=== PATIENT | male | born 1970 | race African-American/Black ===

== ENCOUNTER 2017-08-08 11:48 | Inpatient (IN) | payer OTHER ==
[2017-08-08 13:40] VITALS: BMI 39.3
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
[2017-08-08] MEDS ORDERED: ACETAMINOPHEN 325 MG TABLET (FP) PO PRN (21:34)
[2017-08-08] MEDS ORDERED: guaiFENesin/D-METHORPHAN HB 10 ML UNIT-DOSE CUPS PO PRN (21:34)
[2017-08-08] MEDS ORDERED: P-EPHED 60MG/TRIPROLIDI 2.5MG TABLET PO PRN (21:34)
[2017-08-08] MEDS ORDERED: MAGNESIUM CITRATE 300 ML BOTTLE PO PRN (21:34)
[2017-08-08] MEDS ORDERED: MENTHOL/PHENOL 1 EACH UD MM PRN (21:34)
[2017-08-08] MEDS ORDERED: MAGNESIUM HYDROX 2400MG/30ML ORAL SUSPENSION 30 ML CUP PO PRN (21:34)
[2017-08-08] MEDS ORDERED: diazePAM 5 MG TABLET PO ONE (21:34)
[2017-08-08] MEDS ORDERED: LOPERAMIDE HCL 2 MG CAPSULE PO PRN (21:34)
[2017-08-08] MEDS ORDERED: IBUPROFEN 400 MG TABLET (FP) PO PRN (21:34)
[2017-08-08] MEDS ORDERED: METHADONE HCL 10 MG TABLET (FOR DETOX USE ONLY) PO ONE ×2 (21:34→23:00)
[2017-08-08] MEDS ORDERED: diazePAM 5 MG TABLET PO PRN (21:34)
[2017-08-08] MEDS ORDERED: MAG HYDROX/AL HYDROX/SIMETH 30 ML UNIT-DOSE CUP PO PRN (21:34)
[2017-08-08] MEDS ORDERED: AMMONIUM LACTATE 12% LOTION 225 GM BOTTLE TP PRN (21:44)
[2017-08-08] MEDS ORDERED: METOPROLOL TARTRATE 50 MG TABLET (FP) PO ONE (21:55)
[2017-08-08] MEDS ORDERED: MELATONIN 5 MG TABLETS PO PRN (22:00)
[2017-08-08] MEDS ORDERED: diazePAM 5 MG TABLET PO SCH (22:00)
[2017-08-09] MEDS ORDERED: METHADONE HCL 10 MG TABLET (FOR DETOX USE ONLY) PO ONE ×3 (00:10→23:00)
[2017-08-09] MEDS ORDERED: diazePAM 5 MG TABLET PO ONE (00:10)
[2017-08-09] MEDS: THIAMINE HCL 100 MG TABLET (FP) PO SCH ×2 (01:11→22:21)
[2017-08-09] MEDS ORDERED: cloNIDine HCL 0.1 MG TABLET PO ONE (01:28)
[2017-08-09] MEDS: diazePAM 5 MG TABLET PO SCH ×3 (05:45→22:21)
[2017-08-09] MEDS ORDERED: METHADONE HCL 10 MG TABLET (FOR DETOX USE ONLY) PO SCH (10:00)
[2017-08-09 10:23] LABS: HEMATOCRIT 33.6 % (35.4-49); HEMOGLOBIN 11.6 GM/dL (11.7-16.9); MCH 29.8 pg (25.7-33.7); MCHC 34.4 g/dl (32.0-35.9); MEAN CELL VOLUME 86.4 fl (80-96); MEAN PLT VOLUME 9.5 fl (7.5-11.1); PLATELET COUNT 221 K/MM3 (134-434); RBC 3.89 M/mm3 (4.00-5.60); RDW 14.5 % (11.9-15.9); WHITE BLOOD COUNT 4.8 K/mm3 (4.0-10.0)
[2017-08-09 10:30] LABS: ALBUMIN 3.4 g/dl (3.4-5.0); ANION GAP 5 (8-16); BLOOD UREA NITROGEN 22 mg/dL (7-18); CALCIUM 8.6 mg/dL (8.5-10.1); CHLORIDE 106 mmol/L (98-107); CO2 30 mmol/L (21-32); GLUCOSE,RANDOM 136 mg/dL (74-106); POTASSIUM 3.9 mmol/L (3.5-5.1); SODIUM 141 mmol/L (136-145)
[2017-08-09 10:35] LABS: ALK PHOS 93 U/L (45-117); BILIRUBIN,TOTAL 0.4 mg/dL (0.2-1.0); CREATININE 1.7 mg/dL (0.7-1.3); SGOT/AST 51 U/L (15-37); SGPT/ALT 57 U/L (12-78); TOT PROT 7.8 g/dl (6.4-8.2)
[2017-08-09] MEDS: PRENATAL VITAMINS W/ FOLIC ACID TABLET (FP) PO SCH (10:52)
[2017-08-09] MEDS: diazePAM 5 MG TABLET PO PRN ×2 (10:52→18:10)
[2017-08-09] MEDS: METOPROLOL TARTRATE 50 MG TABLET (FP) PO SCH (10:52)
[2017-08-09] MEDS: NICOTINE 21 MG/24 HOURS TOPICAL PATCH TD SCH (10:52)
--- NOTE | 2017-08-09 11:35 | EKG ---
Test Reason : Blood Pressure : / mmHG Vent. Rate : 092 BPM Atrial Rate : 092 BPM P-R Int : 164 ms QRS Dur : 098 ms QT Int : 368 ms P-R-T Axes : 055 -17 043 degrees QTc Int : 455 ms NORMAL SINUS RHYTHM NORMAL ECG WHEN COMPARED WITH ECG OF 28-APR-2016 16:56, NO SIGNIFICANT CHANGE WAS FOUND Confirmed by JONI LEE MD ([id number]) on 08/09/2017 11:35:17 AM Referred By: Confirmed By:JONI LEE MD
--- NOTE | 2017-08-09 15:42 | PN ---
[facility] CIWA - CIWA Score Nausea/Vomitin-No Nausea/No Vomiting Muscle Tremors: None Anxiety: 4-Mod. Anxious/Guarded Agitation: 4-Moderately Restless Paroxysmal Sweats: No Perspiration Orientation: 0-Oriented Tacttile Disturbances: 3-Moderate Itch/Numb/Burn Auditory Disturbances: 2-Mild Harshness/Frighten Visual Disturbances: 3-Moderate Sensitivity Headache: 0-None Present CIWA-Ar Total Score: 16 S COWS - Scale Resting Pulse: 1= IN 81-100 Sweatin= No chills or Flushing Restless Observation: 1= Difficult to Sit Still Pupil Size: 0= Normal to Room Light Bone or Joint Aches: 4=Acute Joint/Muscle Pain Runny Nose/ Eye Tearin= Runny Nose/Eyes GI Upset > 30mins: 0= None Tremor Observation of Outstretched Hands: 0= None Yawning Observation: 1= 1-2x During Session Anxiety or Irritability: 2=Irritable/Anxious Goose Flesh Skin: 3=Piloerection COWS Score: 14 [facility] Progress Note (SOAP) Subjective: Fatigue, Body Aches, Interrupted Sleep, Constipation. Objective: PATIENT A & O X 3, OBSERVED AMBULATING ON UNIT. NO ACUTE DISTRESS. NO SIGNS OF OVERT INFECTION NOTED AT SITE OF ULCER ON LOWER RIGHT LEG. 08/09/17 15:38 Vital Signs Temperature 98.6 F 08/09/17 09:49 Pulse Rate 94 H 08/09/17 09:49 Respiratory Rate 22 08/09/17 09:49 Blood Pressure 115/56 08/09/17 09:49 O2 Sat by Pulse Oximetry (%) Laboratory Tests 08/09/17 08/09/17 08/09/17 08:00 08:00 08:00 WBC 4.8 D RBC 3.89 L Hgb 11.6 L D Hct 33.6 L MCV 86.4 MCH 29.8 MCHC 34.4 RDW 14.5 Plt Count 221 D MPV 9.5 D Sodium 141 Potassium 3.9 Chloride 106 Carbon Dioxide 30 Anion Gap 5 L BUN 22 H D Creatinine 1.7 H D Creat Clearance w eGFR 43.61 Random Glucose 136 H D Calcium 8.6 Total Bilirubin 0.4 D AST 51 H D ALT 57 D Alkaline Phosphatase 93 D Total Protein 7.8 Albumin 3.4 D RPR Titer Nonreactive LABS NOTED. UA RESULTS PENDING. 08/09/17 15:40 Assessment: 08/09/17 15:39 WITHDRAWAL SYMPTOMS. Plan: CONTINUE DETOX. INCREASE DAILY PO FLUID INTAKE. BMP ON 08/11/2017 FOR ABNORMAL ADMISSION RENAL LAB VALUES. D/C IBUPROFEN AND MAGNESIUM-CONTAINING MEDS. BGM ACBK FOR ELEVATED ADMISSION RANDOM GLUCOSE LEVEL. CONTINUE WOUND CARE OF RIGHT LEG ULCER BID. BACITRACIN ORDERED FOR INFECTION PROHYLAXIS.
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
[2017-08-09] MEDS: BACITRACIN 15 GM TUBE TOPICAL OINTMENT TP SCH (22:21)
[2017-08-09] MEDS: hydrOXYzine PAMOATE 50 MG CAPSULE (FP) PO PRN (22:23)
[2017-08-10] MEDS: diazePAM 5 MG TABLET PO SCH ×3 (06:36→22:23)
[2017-08-10] MEDS: hydrOXYzine PAMOATE 50 MG CAPSULE (FP) PO PRN ×2 (06:38→22:23)
[2017-08-10] MEDS ORDERED: METHADONE HCL 10 MG TABLET (FOR DETOX USE ONLY) PO SCH (10:00)
[2017-08-10] MEDS ORDERED: METHADONE HCL 5 MG TABLET (FOR DETOX USE ONLY) PO SCH (10:00)
[2017-08-10] MEDS ORDERED: diazePAM 5 MG TABLET PO SCH (10:00)
[2017-08-10] MEDS: BACITRACIN 15 GM TUBE TOPICAL OINTMENT TP SCH ×2 (10:34→22:23)
[2017-08-10] MEDS: PRENATAL VITAMINS W/ FOLIC ACID TABLET (FP) PO SCH (10:34)
[2017-08-10] MEDS: NICOTINE 21 MG/24 HOURS TOPICAL PATCH TD SCH (10:34)
[2017-08-10] MEDS: METOPROLOL TARTRATE 50 MG TABLET (FP) PO SCH (10:34)
[2017-08-10] MEDS: diazePAM 5 MG TABLET PO PRN ×2 (10:34→17:39)
--- NOTE | 2017-08-10 17:08 | PN ---
S CIWA - CIWA Score Nausea/Vomitin-No Nausea/No Vomiting Muscle Tremors: 2 Anxiety: 4-Mod. Anxious/Guarded Agitation: 4-Moderately Restless Paroxysmal Sweats: 3 Orientation: 0-Oriented Tacttile Disturbances: 2-Mild Itch/Numbness/Burn Auditory Disturbances: 0-None Visual Disturbances: 2-Mild Sensitivity Headache: 0-None Present CIWA-Ar Total Score: 17 [facility] COWS - Scale Resting Pulse: 0= [place] 80 or Below Sweatin= Chills/Flushing Restless Observation: 1= Difficult to Sit Still Pupil Size: 0= Normal to Room Light Bone or Joint Aches: 2= Severe Diffuse Aches Runny Nose/ Eye Tearin= Nasal Congestion GI Upset > 30mins: 0= None Tremor Observation of Outstretched Hands: 2= Slight Tremor Visible Yawning Observation: 1= 1-2x During Session Anxiety or Irritability: 2=Irritable/Anxious Goose Flesh Skin: 3=Piloerection COWS Score: 13 [facility] Progress Note (SOAP) Subjective: Tremors, Anxious, Body Aches, Sweating. Objective: PATIENT A & O X 3, OBSERVED AMBULATING ON UNIT. NO ACUTE DISTRESS. 08/10/17 17:06 Vital Signs Temperature 98.7 F 08/10/17 10:06 Pulse Rate 75 08/10/17 10:06 Respiratory Rate 18 08/10/17 10:06 Blood Pressure 130/82 08/10/17 10:06 O2 Sat by Pulse Oximetry (%) Laboratory Tests 08/09/17 08/09/17 08/09/17 08:00 08:00 08:00 WBC 4.8 D RBC 3.89 L Hgb 11.6 L D Hct 33.6 L MCV 86.4 MCH 29.8 MCHC 34.4 RDW 14.5 Plt Count 221 D MPV 9.5 D Sodium 141 Potassium 3.9 Chloride 106 Carbon Dioxide 30 Anion Gap 5 L BUN 22 H D Creatinine 1.7 H D Creat Clearance w eGFR 43.61 POC Glucometer Random Glucose 136 H D Calcium 8.6 Total Bilirubin 0.4 D AST 51 H D ALT 57 D Alkaline Phosphatase 93 D Total Protein 7.8 Albumin 3.4 D RPR Titer Nonreactive 08/10/17 06:35 WBC RBC Hgb Hct MCV MCH MCHC RDW Plt Count MPV Sodium Potassium Chloride Carbon Dioxide Anion Gap BUN Creatinine Creat Clearance w eGFR POC Glucometer 156 Random Glucose Calcium Total Bilirubin AST ALT Alkaline Phosphatase Total Protein Albumin RPR Titer LABS NOTED. PATIENT REFUSED TO HAVE BMP DRAWN THIS AM. 08/10/17 17:07 Assessment: 08/10/17 17:07 WITHDRAWAL SYMPTOMS. Plan: CONTINUE DETOX.
[2017-08-10] MEDS: THIAMINE HCL 100 MG TABLET (FP) PO SCH (22:23)
[2017-08-11] MEDS: CYCLOBENZAPRINE HCL 10 MG TABLET (FP) PO PRN ×2 (05:31→17:49)
[2017-08-11] MEDS: diazePAM 5 MG TABLET PO PRN ×2 (05:31→17:49)
[2017-08-11] MEDS: METHADONE HCL 5 MG TABLET (FOR DETOX USE ONLY) PO SCH (10:23)
[2017-08-11] MEDS: diazePAM 5 MG TABLET PO SCH ×2 (10:23→22:15)
[2017-08-11] MEDS: NICOTINE 21 MG/24 HOURS TOPICAL PATCH TD SCH (10:23)
[2017-08-11] MEDS: METOPROLOL TARTRATE 50 MG TABLET (FP) PO SCH (10:23)
[2017-08-11] MEDS: PRENATAL VITAMINS W/ FOLIC ACID TABLET (FP) PO SCH (10:23)
[2017-08-11] MEDS: NICOTINE POLACRILEX 2 MG GUM BC PRN (10:24)
[2017-08-11] MEDS: BACITRACIN 15 GM TUBE TOPICAL OINTMENT TP SCH ×2 (10:24→22:14)
--- NOTE | 2017-08-11 12:57 | PN ---
[facility] Progress Note (SOAP) Subjective: Sleep disturbance Shakes sweats Objective: 08/11/17 12:54 anxious irritable A & O x 3 refuse assessment of leg ulcer Vital Signs Temperature 98.5 F 08/11/17 09:10 Pulse Rate 83 08/11/17 09:10 Respiratory Rate 18 08/11/17 09:10 Blood Pressure 142/95 08/11/17 09:10 O2 Sat by Pulse Oximetry (%) Assessment: 08/11/17 12:56 withdrawal sx Plan: continue detox
[2017-08-11 20:08] LABS: URINE APPEARANCE CLEAR; URINE BILIRUBIN NEGATIVE (<2.0 mg/dL); URINE BLOOD NEGATIVE (NEGATIVE); URINE COLOR YELLOW; URINE GLUCOSE (UA) NEGATIVE (NEGATIVE); URINE KETONE NEGATIVE (NEGATIVE); URINE LEUK ESTERASE NEGATIVE (NEGATIVE); URINE NITRITE NEGATIVE (NEGATIVE); URINE UROBILINOGEN 4.0 E.U/dl mg/dL (0.2-1.0)
[2017-08-11 20:14] LABS: URINE PROTEIN 2+ (NEGATIVE)
[2017-08-11 20:25] LABS: EPI CELLS RARE /HPF (FEW); URINE BACTERIA RARE /hpf (NONE SEEN); URINE MUCUS RARE
[2017-08-11] MEDS: THIAMINE HCL 100 MG TABLET (FP) PO SCH (22:14)
[2017-08-11] MEDS: hydrOXYzine PAMOATE 50 MG CAPSULE (FP) PO PRN (22:16)
[2017-08-12] MEDS: hydrOXYzine PAMOATE 50 MG CAPSULE (FP) PO PRN ×3 (05:26→22:28)
[2017-08-12] MEDS ORDERED: METHADONE HCL 10 MG TABLET (FOR DETOX USE ONLY) PO SCH (10:00)
[2017-08-12] MEDS ORDERED: diazePAM 5 MG TABLET PO SCH (10:00)
[2017-08-12] MEDS: METHADONE HCL 5 MG TABLET (FOR DETOX USE ONLY) PO SCH (10:43)
[2017-08-12] MEDS: METOPROLOL TARTRATE 50 MG TABLET (FP) PO SCH (10:44)
[2017-08-12] MEDS: CYCLOBENZAPRINE HCL 10 MG TABLET (FP) PO PRN (10:44)
[2017-08-12] MEDS: PRENATAL VITAMINS W/ FOLIC ACID TABLET (FP) PO SCH (10:44)
[2017-08-12] MEDS: NICOTINE 21 MG/24 HOURS TOPICAL PATCH TD SCH (10:45)
[2017-08-12] MEDS: BACITRACIN 15 GM TUBE TOPICAL OINTMENT TP SCH ×2 (10:45→22:29)
[2017-08-12] MEDS: diazePAM 5 MG TABLET PO SCH ×2 (10:49→22:28)
[2017-08-12] MEDS: NICOTINE POLACRILEX 2 MG GUM BC PRN (10:49)
--- NOTE | 2017-08-12 13:24 | PN ---
[facility] Progress Note (SOAP) Subjective: Sweating, Fatigue, Body Aches. Objective: PATIENT A & O X 3, OBSERVED AMBULATING ON UNIT. NO ACUTE DISTRESS. 08/12/17 13:23 Vital Signs Temperature 98.1 F 08/12/17 09:28 Pulse Rate 83 08/12/17 09:28 Respiratory Rate 20 08/12/17 09:28 Blood Pressure 118/75 08/12/17 09:28 O2 Sat by Pulse Oximetry (%) Laboratory Tests 08/09/17 08/09/17 08/09/17 08:00 08:00 08:00 WBC 4.8 D RBC 3.89 L Hgb 11.6 L D Hct 33.6 L MCV 86.4 MCH 29.8 MCHC 34.4 RDW 14.5 Plt Count 221 D MPV 9.5 D Sodium 141 Potassium 3.9 Chloride 106 Carbon Dioxide 30 Anion Gap 5 L BUN 22 H D Creatinine 1.7 H D Creat Clearance w eGFR 43.61 POC Glucometer Random Glucose 136 H D Calcium 8.6 Total Bilirubin 0.4 D AST 51 H D ALT 57 D Alkaline Phosphatase 93 D Total Protein 7.8 Albumin 3.4 D Urine Color Urine Appearance Urine pH Ur Specific [place] Urine Protein Urine Glucose (UA) Urine Ketones Urine Blood Urine Nitrite Urine Bilirubin Urine Urobilinogen Ur Leukocyte Esterase Urine WBC (Auto) Urine RBC (Auto) Ur Epithelial Cells Urine Bacteria Urine Mucus RPR Titer Nonreactive 08/10/17 08/11/17 08/12/17 06:35 13:55 05:25 WBC RBC Hgb Hct MCV MCH MCHC RDW Plt Count MPV Sodium Potassium Chloride Carbon Dioxide Anion Gap BUN Creatinine Creat Clearance w eGFR POC Glucometer 156 105 Random Glucose Calcium Total Bilirubin AST ALT Alkaline Phosphatase Total Protein Albumin Urine Color Yellow Urine Appearance Clear Urine pH 7.0 Ur Specific [place] 1.015 Urine Protein 2+ H Urine Glucose (UA) Negative Urine Ketones Negative Urine Blood Negative Urine Nitrite Negative Urine Bilirubin Negative Urine Urobilinogen 4.0 e.u/dl Ur Leukocyte Esterase Negative Urine WBC (Auto) 11 Urine RBC (Auto) 1 Ur Epithelial Cells Rare Urine Bacteria Rare Urine Mucus Rare RPR Titer LABS NOTED. Assessment: 08/12/17 13:23 WITHDRAWAL SYMPTOMS. Plan: CONTINUE DETOX. INCREASE DAILY PO FLUID INTAKE.
[2017-08-12] MEDS: THIAMINE HCL 100 MG TABLET (FP) PO SCH (22:28)
[2017-08-13] MEDS ORDERED: METHADONE HCL 5 MG TABLET (FOR DETOX USE ONLY) PO SCH (06:00)
[2017-08-13] MEDS ORDERED: METHADONE HCL 10 MG TABLET (FOR DETOX USE ONLY) PO SCH ×2 (06:00→10:00)
[2017-08-13 06:19] VITALS: BP 120/70; PULSE 77; TEMP 97.6
[2017-08-13] MEDS ORDERED: diazePAM 5 MG TABLET PO SCH (10:00)
--- NOTE | 2017-08-13 13:16 | PN ---
[facility] Progress Note (SOAP) Subjective: Patient denies current Detox symptoms and reports that he feels well overall. Objective: PATIENT A & O X 3, OBSERVED AMBULATING ON UNIT. NO ACUTE DISTRESS. 08/13/17 13:15 Vital Signs Temperature 97.6 F 08/13/17 06:18 Pulse Rate 77 08/13/17 06:18 Respiratory Rate 18 08/13/17 06:18 Blood Pressure 120/70 08/13/17 06:18 O2 Sat by Pulse Oximetry (%) Laboratory Tests 08/09/17 08/09/17 08/09/17 08:00 08:00 08:00 WBC 4.8 D RBC 3.89 L Hgb 11.6 L D Hct 33.6 L MCV 86.4 MCH 29.8 MCHC 34.4 RDW 14.5 Plt Count 221 D MPV 9.5 D Sodium 141 Potassium 3.9 Chloride 106 Carbon Dioxide 30 Anion Gap 5 L BUN 22 H D Creatinine 1.7 H D Creat Clearance w eGFR 43.61 POC Glucometer Random Glucose 136 H D Calcium 8.6 Total Bilirubin 0.4 D AST 51 H D ALT 57 D Alkaline Phosphatase 93 D Total Protein 7.8 Albumin 3.4 D Urine Color Urine Appearance Urine pH Ur Specific [place] Urine Protein Urine Glucose (UA) Urine Ketones Urine Blood Urine Nitrite Urine Bilirubin Urine Urobilinogen Ur Leukocyte Esterase Urine WBC (Auto) Urine RBC (Auto) Ur Epithelial Cells Urine Bacteria Urine Mucus RPR Titer Nonreactive 08/10/17 08/11/17 08/12/17 06:35 13:55 05:25 WBC RBC Hgb Hct MCV MCH MCHC RDW Plt Count MPV Sodium Potassium Chloride Carbon Dioxide Anion Gap BUN Creatinine Creat Clearance w eGFR POC Glucometer 156 105 Random Glucose Calcium Total Bilirubin AST ALT Alkaline Phosphatase Total Protein Albumin Urine Color Yellow Urine Appearance Clear Urine pH 7.0 Ur Specific [place] 1.015 Urine Protein 2+ H Urine Glucose (UA) Negative Urine Ketones Negative Urine Blood Negative Urine Nitrite Negative Urine Bilirubin Negative Urine Urobilinogen 4.0 e.u/dl Ur Leukocyte Esterase Negative Urine WBC (Auto) 11 Urine RBC (Auto) 1 Ur Epithelial Cells Rare Urine Bacteria Rare Urine Mucus Rare RPR Titer LABS NOTED. Assessment: 08/13/17 13:15 COMPLETION OF DETOX REGIMEN. Plan: PATIENT SCHEDULED FOR DISCHARGE FROM DETOX UNIT TODAY.
--- NOTE | 2017-08-13 13:23 | DS ---
[facility] Detox Discharge Summary Admission Date: 08/08/17 Discharge Date: 08/13/17 - History Present History: Alcohol Dependence, Cocaine Dependence, Opioid Dependence, Sedative Dependence Additional Comments: PATIENT GOING HOME. PATIENT ADVISED TO CONSIDER LOCAL 12-STEP / NA / AA OUTPATIENT SUPPORT GROUPS FOR AFTERCARE. PATIENT WAS DISCHARGED FORM DETOX UNIT IN STABLE MEDICAL CONDITION. Pertinent Past History: HTN, Ulcer on Right Leg, Depression, Hep C, Dry Skin, Dry Skin, Lower Extremity Edema, History of Seizures (due to withdrawal). - Physical Exam Results Vital Signs: Vital Signs Temperature 97.6 F 08/13/17 06:18 Pulse Rate 77 08/13/17 06:18 Respiratory Rate 18 08/13/17 06:18 Blood Pressure 120/70 08/13/17 06:18 O2 Sat by Pulse Oximetry (%) Pertinent Admission Physical Exam Findings: WITHDRAWAL SYMPTOMS. Laboratory Tests 08/09/17 08/09/17 08/09/17 08:00 08:00 08:00 WBC 4.8 D RBC 3.89 L Hgb 11.6 L D Hct 33.6 L MCV 86.4 MCH 29.8 MCHC 34.4 RDW 14.5 Plt Count 221 D MPV 9.5 D Sodium 141 Potassium 3.9 Chloride 106 Carbon Dioxide 30 Anion Gap 5 L BUN 22 H D Creatinine 1.7 H D Creat Clearance w eGFR 43.61 POC Glucometer Random Glucose 136 H D Calcium 8.6 Total Bilirubin 0.4 D AST 51 H D ALT 57 D Alkaline Phosphatase 93 D Total Protein 7.8 Albumin 3.4 D Urine Color Urine Appearance Urine pH Ur Specific [place] Urine Protein Urine Glucose (UA) Urine Ketones Urine Blood Urine Nitrite Urine Bilirubin Urine Urobilinogen Ur Leukocyte Esterase Urine WBC (Auto) Urine RBC (Auto) Ur Epithelial Cells Urine Bacteria Urine Mucus RPR Titer Nonreactive 08/10/17 08/11/17 08/12/17 06:35 13:55 05:25 WBC RBC Hgb Hct MCV MCH MCHC RDW Plt Count MPV Sodium Potassium Chloride Carbon Dioxide Anion Gap BUN Creatinine Creat Clearance w eGFR POC Glucometer 156 105 Random Glucose Calcium Total Bilirubin AST ALT Alkaline Phosphatase Total Protein Albumin Urine Color Yellow Urine Appearance Clear Urine pH 7.0 Ur Specific [place] 1.015 Urine Protein 2+ H Urine Glucose (UA) Negative Urine Ketones Negative Urine Blood Negative Urine Nitrite Negative Urine Bilirubin Negative Urine Urobilinogen 4.0 e.u/dl Ur Leukocyte Esterase Negative Urine WBC (Auto) 11 Urine RBC (Auto) 1 Ur Epithelial Cells Rare Urine Bacteria Rare Urine Mucus Rare RPR Titer LABS NOTED. - Treatment Hospital Course: Detox Protocol Followed, Detoxed Safely, Responded well, Discharged Condition Good Patient has Accepted a Rehab Referral to: PT ADVISED TO CONSIDER LOCAL 12-STEP/ NA/AA OUTPATIENT SUPPORT GROUPS. - Medication Discharge Medications: Ambulatory Orders Metoprolol Tartrate [Lopressor -] 50 mg PO DAILY #30 tablet 08/12/17 - Diagnosis (1) Alcohol dependence with uncomplicated withdrawal Status: Acute (2) Cocaine dependence, uncomplicated Status: Chronic (3) HBP (high blood pressure) Status: Acute Qualifiers: Hypertension type: unspecified Qualified Code(s): I10 - Essential (primary ) hypertension (4) Opioid dependence with withdrawal Status: Acute (5) Sedative, hypnotic or anxiolytic dependence with withdrawal, uncomplicated Status: Acute (6) Ulcer of right calf Status: Acute Qualifiers: Non-pressure ulcer stage: unspecified non-pressure ulcer stage Qualified Code(s): L97.219 - 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
[2017-08-14] MEDS ORDERED: METHADONE HCL 5 MG TABLET (FOR DETOX USE ONLY) PO SCH (06:00)
== END 2017-08-13 07:42 | disposition home or self-care (01) | DRG 773 ==
LOC: YASAS 11:48 → Y3N 23:35
PROVIDERS: ADMIT Internal Medicine; ATTEND Internal Medicine
PROC: HZ2ZZZZ Detoxification Services for Substance Abuse Treatment (ICD-10-PCS; principal; 2017-08-08)
DX: F11.23 Opioid dependence with withdrawal (principal); F10.230 Alcohol dependence with withdrawal, uncomplicated; F13.230 Sedative, hypnotic or anxiolytic dependence with withdrawal, uncomplicated; F14.20 Cocaine dependence, uncomplicated; F17.210 Nicotine dependence, cigarettes, uncomplicated; R00.0 Tachycardia, unspecified; I10 Essential (primary) hypertension; L97.219 Non-pressure chronic ulcer of right calf with unspecified severity; R60.0 Localized edema; E66.09 Other obesity due to excess calories; Z68.39 Body mass index [BMI] 39.0-39.9, adult; Z86.69 Personal history of other diseases of the nervous system and sense organs; Z91.040 Latex allergy status
CPT/HCPCS: 36415; 80053; 81003; 81015; 82962; 85027; 86593; 93005; 93010; J0735